=== PATIENT | female | born 1975 | race Caucasian/White ===

== ENCOUNTER → 2017-10-21 | Outpatient (CLI) | payer BC ==
[2006-02-22 07:45] VITALS: TEMP 97.7
[~2017-10-21] MED LIST: CELEXA20 MG PO; LORTAB 5/500 501 TAB; MULTIPLE VITAMI1 CAP PO; ORTHO-NOVUM 1/31 TA1 PO; PRENATAL1 TA1 PO; PRILOSEC10 MG/Pack PO; WELLBUTRIN XL300 M1
== END ==
LOC: COL.RAD 12:31
DX: E04.2 Nontoxic multinodular goiter (principal); F45.8 Other somatoform disorders

== ENCOUNTER → 2017-12-21 | Outpatient (CLI) | payer BC ==
[2006-02-22 07:45] VITALS: TEMP 97.7
== END ==
LOC: COL.RAD 12-11 14:45
DX: H93.A3 Pulsatile tinnitus, bilateral (principal)
CPT/HCPCS: A9585

== ENCOUNTER 2020-06-02 14:05 | Emergency (ER) | payer BC, OTHER ==
[~2020-06-02] VITALS: Ht 165.1 cm; Wt 111.4 kg
[2020-06-02 14:11] VITALS: TEMP 98.3
[2020-06-02 14:34] LABS: BASO % 0.4 % (0.0-2.0); EOS # 0.1 (0.0-0.7); EOS % 1.7 % (0-4.0); GRAN # 4.5 (1.4-6.5); GRAN % 58.7 % (42.2-75.2); HEMOGLOBIN 11.6 g/dl (12.5-16.0); LYMPH # 2.4 (1.2-3.4); LYMPH % 32.1 % (20.0-51.0); MEAN CELL VOLUME 94 fl (80.0-100.0); MEAN CORPUSCULAR HEMOGLOBIN 30 pg (27.0-31.0); MEAN CORPUSCULAR HGB CONC 32 g/dl (33.0-37.0); MEAN PLATELET VOLUME 9.7 fl (7.4-10.4); MONO # 0.5 (0.1-0.6); MONO % 6.7 % (1.7-9.3); PLATELET COUNT 207 K/mm3 (130-400); RED BLOOD COUNT 3.81 M/mm3 (4.10-5.30); REDCELL DISTRIBUTION WIDTH-CV 13.1 % (11.5-14.5)
[2020-06-02 14:38] LABS: HEMATOCRIT 35.9 % (37.0-47.0)
[2020-06-02 14:44] LABS: ALBUMIN 3.9 gm/dL (3.5-5.0); BILIRUBIN,TOTAL 0.5 mg/dL (0.0-1.0); CREATININE, serum 1.01 (0.52-1.25); MAGNESIUM 1.7 mg/dL (1.6-2.3); PHOSPHOROUS 4.5 mg/dL (2.5-4.5); POTASSIUM 3.7 mmol/L (3.4-5.0); TOTAL PROTEIN 6.8 gm/dL (6.4-8.2)
[2020-06-02 15:50] VITALS: BP 122/76; PULSE 69
== END 2020-06-02 15:50 | disposition home or self-care (01) ==
LOC: COL.ER 14:05
PROVIDERS: Nurse Practitioner
DX: E83.51 Hypocalcemia (principal); F32.9 Major depressive disorder, single episode, unspecified
CPT/HCPCS: J0610

== ENCOUNTER → 2021-12-18 | Outpatient (CLI) | payer BC ==
[~2021-12-18] VITALS: Ht 165.1 cm; Wt 112.0 kg
[~2021-12-18] MED LIST changes: +AMBIEN 10MG10 MG PO; +CELEXA40 MG PO; +CLARITIN 1010 MG/TAB PO; +PROTONIX 40MG T40 MG PO; +RT ADVAIR HFA 1112 G IH; +SYNTHROID0.112 MG/T PO
[2021-12-18 13:12] VITALS: BP 116/82; PULSE 75; TEMP 98.1
[2021-12-18 14:25] VITALS: BP 125/81; PULSE 71
== END ==
LOC: COL.RAD 12:23
DX: M51.26 Other intervertebral disc displacement, lumbar region (principal)
CPT/HCPCS: J3301

== ENCOUNTER → 2022-01-01 | Outpatient (CLI) | payer BC ==
[2006-02-22 07:45] VITALS: TEMP 97.7
== END ==
LOC: COL.RAD 10:11
DX: K21.9 Gastro-esophageal reflux disease without esophagitis (principal); K44.9 Diaphragmatic hernia without obstruction or gangrene

== ENCOUNTER 2022-02-05 05:37 | Day surgery (SDC) | payer BC ==
[2022-02-05] VITALS (12 sets, daily range): BP systolic 93–131; BP diastolic 47–76; PULSE 75–89; TEMP 97.4–98.8
[~2022-02-05] VITALS: Ht 165.1 cm; Wt 110.0 kg
[2022-02-05] MEDS ORDERED: FLONASEALLERGY NS (06:10)
[2022-02-05] MEDS ORDERED: ATIVAN 0.50.5 MG/TAB PO (06:11)
--- NOTE | 2022-02-05 07:30 | NUR ---
The patient has been taken back to the operating room via cart at this time. The patient's chart was sent with her to surgery. The patient's was directed to the cafeteria and then will return to the surgery waiting room. The patient's belongings were taken over to the recovery room and will be transferred up to the 3rd floor post operatively.
--- NOTE | 2022-02-05 10:10 | NUR ---
The patient arrived back to [place] [facility] from the recovery room at this time. The patient appears alert and oriented and denies any pain or nausea at this time. Post operative vital signs were started at this time. The patient agrees to try some ice water. The patient has 5 bandaids to her abdomen that appear clean, dry and intact. Call light is within reach. The patient's is at her bedside. The patient denies any further needs at this time.
--- NOTE | 2022-02-05 10:25 | NUR ---
The patient appears to be resting comfortably on the cart. The patient appears to be tolerating the water well and denies wanting anything further at this time. Call light is within reach. remains at her bedside.
--- NOTE | 2022-02-05 10:40 | NUR ---
The patient was transferred up to the 3rd floor by BALDEV Botello and BALDEV Vidales. The patient's chart and belongings were sent up with her. Report had been previously called to BALDEV Matias who will be assuming the care of the patient. The patient's is going to follow them to her room.
--- NOTE | 2022-02-05 10:50 | NUR ---
PT ARRIVED TO ROOM 348 IN BED. PT A&OX3 RESTING COMFORTABLY. ASSESSMENT COMPLETED AND POST OP VS STABLE. PT DENIES ABD PN BUT REPORTS PN IN SHOULDERS. HEATING PAD GIVEN TO RELIEVE DISCOMFORT. NO OTHER NEEDS AT THIS TIME. CALL LIGHT WITHIN REACH.
--- NOTE | 2022-02-05 20:00 | NUR ---
Pt. sitting up in bed. Pt. is A&OX3, assessment complete. INT to lt. hand patent. Pt. reports pain in upper shoulders and in the abd. Giving pain meds per orders. Abd. incisions CDI. Pt. denies further needs, call light within reach.
[2022-02-06 03:49] VITALS: BP 122/64; PULSE 67; TEMP 98.3
[2022-02-06 07:52] VITALS: BP 116/72; PULSE 68; TEMP 98.7
--- NOTE | 2022-02-06 09:22 | NUR ---
SILVINO met with the patient to discuss discharge plan. The patient lives in [place] with her , Juan (ph#[phone]), and their three daughters. She reports independence with ADLs and does not have any DME. The patient's PCP is Dr. Bro Junior and she receives her medications from [facility]. The patient does not have a DPOA-HC, but she was interested in obtaining a form. SILVINO provided. The patient plans to return home with her family upon discharge. No additional needs at this time. *Discharge plan: home with family*
[2022-02-06 11:56] VITALS: BP 110/50; PULSE 69; TEMP 97.9
[2022-02-06] MEDS ORDERED: NORCO 325 MG-51 TAB PO (16:21)
[2022-02-06 16:30] VITALS: BP 117/75; PULSE 63; TEMP 99
--- NOTE | 2022-02-06 17:10 | NUR ---
PT DISCHARGED TO HOME WITH SPOUSE @ THIS TIME. PT AMBULATES TO PRIVATE VEHICLE ACCOMPANIED BY ELVIS MOLINA. PT HAS DONE WELL TODAY, HAS BEEN UP INDEPENDENT IN ROOM, HAS TOLERATED FULL LIQUIDS WELL, HAS SOME PAIN BUT DENIES NAUSEA. NORCO HAS BEEN ADMINISTERED FOR PAIN. ABDOMINAL INCISIONS COVERED WITH BAND-AIDS, ARE CDI.
== END 2022-02-06 17:10 | disposition home or self-care (01) ==
LOC: SDCO 05:37 → SURG 10:50 → SDCO 02-06 17:10
DX: K21.9 Gastro-esophageal reflux disease without esophagitis (principal); Z86.16 Personal history of COVID-19
CPT/HCPCS: OP; J0330; J0690; J1100; J2175; J2405; J2704; J2765; J3010; J7120

== ENCOUNTER → 2022-09-16 | Outpatient (CLI) | payer BC ==
[~2022-09-16] MED LIST changes: +ATIVAN 0.50.5 MG/TAB PO; +ESTRACE 1MG1 MG/TAB PO; +FLONASEALLERGY NS; +NORCO 325 MG-51 TAB PO; +OZEMPIC0.25 MG/0. SQ; +PROVERA5 MG PO
== END ==
LOC: COL.RAD 14:02
DX: R13.14 Dysphagia, pharyngoesophageal phase (principal)

== ENCOUNTER 2023-09-12 06:11 | Day surgery (SDC) | payer BC ==
[2023-09-12] VITALS (9 sets, daily range): BP systolic 95–121; BP diastolic 45–80; PULSE 65–99; TEMP 97.8–98.6
[~2023-09-12] VITALS: Ht 165.1 cm; Wt 115.4 kg
[~2023-09-12 06:11] MED LIST changes: +DESYREL 50MG50 MG PO; +ZOLOFT 100MG100 MG PO; +ZOLOFT 50MG50 MG PO
[2023-09-12] MEDS ORDERED: WELLBUTRIN XL150 MG PO (06:59)
[2023-09-12] MEDS ORDERED: PRILOTC PO (07:01)
[2023-09-12] MEDS ORDERED: ZYRTEC5 MG PO (07:01)
[2023-09-12] MEDS ORDERED: Lidocaine 2% (20 MG/ML) 20 ML UROJET UR ONE (07:25)
[2023-09-12] MEDS ORDERED: fentaNYL 50 MCG/ML 2 ML VIAL ONE (07:33)
[2023-09-12] MEDS ORDERED: NS 10 ML IV ONE (07:33)
[2023-09-12] MEDS ORDERED: Lidocaine PF 2% (20 MG/ML) 5 ML VIAL ONE (07:33)
[2023-09-12] MEDS ORDERED: Glycopyrrolate 0.2 MG/ML 1 ML VIAL ONE (07:33)
[2023-09-12] MEDS ORDERED: Ondansetron 4 MG/2 ML VIAL ONE (07:33)
[2023-09-12] MEDS ORDERED: dexAMETHasone 10 MG/ML VIAL ONE (07:33)
--- NOTE | 2023-09-12 07:38 | NUR ---
Patient prepped for the Or. IVf started. Med rec completed. Urine sent to lab, negative hcg. Will await her return
[2023-09-12] MEDS ORDERED: LR 1,000 ML IV SCH (07:45)
[2023-09-12] MEDS ORDERED: Morphine 4 MG/ML VIAL IV PRN (07:45)
[2023-09-12] MEDS ORDERED: Ondansetron 4 MG/2 ML VIAL IV PRN (07:45)
[2023-09-12] MEDS ORDERED: HYDROmorphone 2 MG/1 ML VIAL IV PRN (07:45)
[2023-09-12] MEDS ORDERED: Meperidine 50 MG/ML 1 ML VIAL IV PRN (07:45)
[2023-09-12] MEDS ORDERED: ePHEDrine 50 MG/ML VIAL ONE (08:04)
[2023-09-12] MEDS ORDERED: HYDROmorphone 2 MG/1 ML VIAL IV ONE ×2 (08:41→08:46)
[2023-09-12] MEDS ORDERED: oxyCODONE/Acetaminophen 5-325 MG TAB PO PRN (08:45)
[2023-09-12] MEDS ORDERED: Hyoscyamine 0.125 MG Sublingual TAB SL PRN (08:45)
[2023-09-12] MEDS ORDERED: Ketorolac 15 MG/ML VIAL IV PRN (08:45)
[2023-09-12] MEDS ORDERED: PERCOCET 325 MG1 TA2 PO (10:59)
[2023-09-12] MEDS ORDERED: FLOMAX 0.40.4 MG/CAP PO (10:59)
--- NOTE | 2023-09-12 11:59 | NUR ---
Data: Patient and accepted Research Associate Professor visit offered during Research Associate Professor rounds. Both are looking forward to Patient being discharged sometime today. Assessment: Patient is tired, grateful to no longer be in pain, and hungry. Plan of Care: Research Associate Professor offered supportive listening and prayer. Research Associate Professor attempted to order breakfast, however the dietary order had not yet been entered. Research Associate Professor gave Patient's breakfast order to Patient's RN. Chaplains will remain available as needed/requested while Patient is admitted to this hospital.
--- NOTE | 2023-09-12 12:30 | NUR ---
Patient has done well post op and ready to get home. Tolerated breakfast tray without nausea. Vss on room air. Pain managed without further medications. Voiding adequately, blood tinged urine. All discharge education reviewed, including medication list and new prescriptions. Activity & diet discussed and fluid intake encouared. INT DC. Patient aware she will need to make follow up appt for stent removal Thursday and to call office with any questions or concerns. Patient ambulated out with all belongings. Her spouse taking her home. Denies questions or concerns.
== END 2023-09-12 12:35 | disposition home or self-care (01) ==
LOC: SDCO 06:11 → SURG 06:30 → SDCO 12:35 → SURG 12:35 → SDCO 16:13
DX: N20.1 Calculus of ureter (principal); E66.9 Obesity, unspecified
CPT/HCPCS: OP; C1769; C2617; J0690; J1100; J1170; J2405; J2704; J3010